=== PATIENT | female | born 1975 | race Caucasian/White ===

== ENCOUNTER 2016-12-03 17:36 | Emergency (ER) | payer SELFPAY ==
[2016-12-03] MEDS ORDERED: HYDROcodone/Acetaminophen 10/325 mg Tablet ONE (18:16)
[2016-12-03] MEDS ORDERED: Lidocaine 1% 20 ML MDV ONE (18:17)
[2016-12-03] MEDS ORDERED: Naproxen 500 MG TAB ONE (18:17)
[2016-12-03] MEDS ORDERED: Benzonatate 100 MG CAP ONE (18:17)
[2016-12-03] MEDS ORDERED: cefTRIAXone\\ROCEPHIN 1 GM VIAL ONE (18:17)
--- NOTE | 2016-12-03 19:32 | RAD ---
PORTABLE UPRIGHT FRONTAL CHEST: Date: 12-03-16 Comparison: 10-01-15 History: Cough. FINDINGS: Lungs are clear. Heart and mediastinal contours are stable. IMPRESSION: No acute findings. POS: [facility]
== END 2016-12-03 18:40 | disposition home or self-care (01) ==
LOC: MADERS 17:36
DX: J20.9 Acute bronchitis, unspecified (principal)
CPT/HCPCS: 71010; 87081; 87430; 96372; J0696; J2001

== ENCOUNTER 2017-01-01 18:05 | Emergency (ER) | payer SELFPAY ==
[2017-01-01] MEDS ORDERED: Ibuprofen 800 MG TAB ONE (18:17)
[2017-01-01] MEDS ORDERED: HYDROcodone/Acetaminophen 5/325 mg Tablet ONE (18:17)
[2017-01-01] MEDS ORDERED: Diazepam 5 MG TAB ONE (18:17)
--- NOTE | 2017-01-01 19:57 | RAD ---
RIGHT SHOULDER THREE VIEWS HISTORY: Injury. COMPARISON: Shoulder radiograph from 2010. FINDINGS: There is elevation of the distal clavicle from the acromion. There is also a widened coracoclavicul ar distance. This is new from the comparison 2010 examination. Glenohumeral alignment appears maintained. IMPRESSION: Grade 3 acromioclavicular sprain. POS: [facility]
--- NOTE | 2017-01-01 20:09 | RAD ---
RIGHT HUMERUS TWO VIEW 01/01/17 HISTORY: Pain. COMPARISON: None. FINDINGS: No acute fracture, malalignment of the humerus. There is grade III acromioclavicular sprain. IMPRESSION: Garde III acromioclavicular sprain with widening and rupture of the acromioclavicular and coracoclav icular ligaments. POS: [facility]
== END 2017-01-01 19:06 | disposition home or self-care (01) ==
LOC: MADERS 18:05
DX: S43.51XA Sprain of right acromioclavicular joint, initial encounter (principal); W17.89XA Other fall from one level to another, initial encounter

== ENCOUNTER 2018-01-01 12:49 | Emergency (ER) | payer SELFPAY | END 2018-01-01 13:05 | disposition left against medical advice (07) | LOC: MADERS 12:49 | DX: Z53.21 Procedure and treatment not carried out due to patient leaving prior to being seen by health care provider (principal) ==